=== PATIENT | male | born 1975 | race Caucasian/White ===

== ENCOUNTER 2018-01-12 22:54 | Day surgery (SDC) | payer BC ==
[~2018-01-12 22:54] MED LIST: Lidocaine 1% PF 5 ML VIAL ONE; Ondansetron HCl/PF 4 MG/2 ML Vial ONE; PROPOFOL 200 MG/20 ML VIAL ONE; Succinylcholine Chloride 20 MG/ML 10 ml SYRINGE FS ONE
--- NOTE | 2018-01-13 06:16 | OP ---
DATE OF PROCEDURE: 01/13/2018 SURGEON: Nav Prajapati M.D. PROCEDURE: Esophagogastroduodenoscopy with biopsy. PREOPERATIVE DIAGNOSES: 1. Foreign body obstruction in the esophagus noted on CAT scan at outside hospital with inability to handle secretions. On arrival here he was able to handle secretions. 2. Intermittent dysphagia over the past several months. 3. Reflux. POST-PROCEDURE DIAGNOSES: 1. Ulcer distal esophagus with edema consistent with recent foreign body which has now passed. 2. Hiatal hernia 4 cm. 3. Mild gastritis, biopsied for Helicobacter pylori. 4. Mild duodenitis with erosions. 5. Normal distal duodenum. ANESTHESIA: General endotracheal anesthesia. RECOMMENDATIONS: 1. PPI b.i.d. for 14 days, then once daily. 2. Followup in my office in 2 weeks. 3. Follow up EGD in 2-4 weeks for dilatation and ensure healing of ulcer. The findings were discussed with the patient's . We will get him a follow up in the office. PROCEDURE IN DETAIL: After the patient was informed of the risks, benefits and possible complication s of endoscopy including perforation, reactions to medication and aspiration, informed consent was ob tained. The patient was brought to endoscopy suite where he was intubated for airway protection. Th e endoscope was advanced through the esophagus. In the distal esophagus, there was a large ulcer con sistent with reflux. There was no evidence of malignancy or Jaeger's, although there was quite a bi t of inflammation and the GE junction could not be seen well. There was mild narrowing at the distal GE junction, but no overt tight stricture. The scope passed this area easily into the stomach. Ret roflexed views in the proximal stomach showed no evidence of lesions in the lower aspect of the GE ju nction. The endoscope was then returned to the forward position and advanced to the antrum. There w as mild gastritis. Biopsies were negative for H. pylori. There was mild duodenitis with small erosi ons. The second and third portion of the duodenum were normal. The stomach with normal distensibili ty. The scope was brought back to look at the ulcer in the distal esophagus and there was a slight r ing there, but did not want to dilate this in light of the degree of inflammation concern for perfora tion. The scope was removed. The patient tolerated the procedure well with no complications.
--- NOTE | 2018-01-13 18:45 | CON ---
DATE OF CONSULTATION: 01/13/2018 GASTROINTESTINAL CONSULT REASON FOR CONSULTATION: Possible foreign body in esophagus. HISTORY OF PRESENT ILLNESS: Mr. Hathaway notes he was eating steak this evening when he felt something get stuck in his lower chest region. He was unable to handle secretions. He tried to get it up or get it to pass down with water, but would not come, he was retching and dry heaving. He went from [facility], called his and went about 60 miles to the emergency room in [place]. There he was eval uated by the ER physician, they felt he had a foreign body, ultimately had a CAT scan of the chest an d abdomen without contrast that showed a foreign body in the distal esophagus and a hiatal hernia, ai r fluid level in the proximal esophagus. They tried glucagon and other measures and this would not p ass, contacted me and asked for transfer to our facility for removal of foreign bodies as GI was not available at the outside hospital, which I agree to. He just arrived here at about 11:00. He is no longer retching. He states he was given Phenergan in the emergency room before he came and he has edwards d no further vomiting. He has no further pain. He thinks it may have passed. He does note intermit tently he has been having dysphagia while food get stuck and after drinking water to pass it down. Huong medina takes Nexium or OTC Prilosec about 2 weeks every month. He has had no weight loss, hematemesis, me sixto, hematochezia. Incidentally had a CAT scan of the abdomen, he had an atrophic right kidney and a dilated collecting system on the right of unclear etiology. LABORATORY DATA: No labs were performed in the outside facility. PAST MEDICAL HISTORY: Reflux. PAST SURGICAL HISTORY: Appendectomy. ALLERGIES: No known drug allergies. PHYSICAL EXAMINATION: VITAL SIGNS: Blood pressure 140/88, pulse is 75, respirations 18. LUNGS: Clear. HEART: Regular, without murmurs. ABDOMEN: Soft, nontender. NECK: Supple without adenopathy. There is no stridor. There is no crepitus. ASSESSMENT: This is likely bulb suction esophagus, may have been passed and he is having intermitten t dysphagia for some time. He does not have a primary doctor. He does not follow up with doctors. We are going to proceed with an EGD. If there is a foreign body, I will remove it. If there is a st ricture, we will dilate it.
== END 2018-01-13 00:40 | disposition home or self-care (01) ==
LOC: SDC 22:54
PROVIDERS: ATTEND Internal Medicine Gastroenterology
PROC: 0DB68ZX Excision of Stomach, Via Natural or Artificial Opening Endoscopic, Diagnostic (ICD-10-PCS; principal; 2018-01-13)
DX: K22.10 Ulcer of esophagus without bleeding (principal); K29.50 Unspecified chronic gastritis without bleeding; K29.80 Duodenitis without bleeding; K26.9 Duodenal ulcer, unspecified as acute or chronic, without hemorrhage or perforation; B96.81 Helicobacter pylori [H. pylori] as the cause of diseases classified elsewhere; K44.9 Diaphragmatic hernia without obstruction or gangrene; K21.9 Gastro-esophageal reflux disease without esophagitis
CPT/HCPCS: 88305; 88312; J2001; J2405; J2704